=== PATIENT | male | born 1980 | race Caucasian/White ===

== ENCOUNTER 2022-03-03 08:09 | Outpatient (CLI) | payer BC | END 2022-03-03 08:10 | disposition home or self-care (01) | LOC: TBSIIMAG 08:09 | PROVIDERS: ATTEND Nurse Practitioner Family | DX: G44.89 Other headache syndrome (principal); R42 Dizziness and giddiness; R20.2 Paresthesia of skin; R90.82 White matter disease, unspecified | CPT/HCPCS: 70551 ==